=== PATIENT | female | born 2000 | race Two or more races ===

== ENCOUNTER 2022-08-29 19:57 | Emergency (ER) | payer OTHER, SELFPAY ==
[2022-08-29 20:05] VITALS: BP 118/51; PULSE 89; RESP 16; TEMP 36.7; O2SAT 100
--- NOTE | 2022-08-29 23:05 | PC.NURSE ---
Entered pt's room to introduce self to pt and pt was not in room.
== END 2022-08-29 23:10 | disposition left against medical advice (07) ==
DX: S80.261A Insect bite (nonvenomous), right knee, initial encounter (principal)
CPT/HCPCS: 99199